=== PATIENT | male | born 1995 | race African-American/Black ===

== ENCOUNTER 2017-08-24 09:08 | Emergency (ER) | payer OTHER ==
[~2017-08-24] VITALS: Ht 167.6 cm; Wt 74.8 kg
[~2017-08-24 09:08] MED LIST: AUGMENTIN 875875 MG PO; HYDROCODONE-APA1 TA1 PO; IBUPROFEN 400400 M2 PO; IBUPROFEN 800800 MG PO; MAGOX 400400 MG PO; MUCINEX SINUS-1 EACH PO; NOHOMEMEDICATIONS; NORCO 5-325 TA1 EACH PO; ZYRTEC10 M4 PO
[2017-08-24 10:41] LABS: INFLUENZA A ANTIGEN None Detected (None Detect); INFLUENZA B ANTIGEN None Detected (None Detect)
[2017-08-24] MEDS ORDERED: atrovent NASAL (10:49)
[2017-08-24] MEDS ORDERED: IBUPROFEN 800800 MG PO (10:49)
[2017-08-24] MEDS ORDERED: AMOXICILLIN 50500 M1 PO (10:49)
[2017-08-24 10:59] VITALS: BP 135/80
== END 2017-08-24 11:00 | disposition home or self-care (01) ==
LOC: M.ERS 09:08
PROVIDERS: Personal Emergency Response Attendant
DX: B34.9 Viral infection, unspecified (principal)

== ENCOUNTER 2018-02-08 19:09 | Emergency (ER) | payer OTHER ==
[~2018-02-08] VITALS: Ht 170.2 cm; Wt 72.6 kg
[~2018-02-08 19:09] MED LIST changes: +AMOXICILLIN 50500 M1 PO; +atrovent NASAL
[2018-02-08 19:16] VITALS: BP 125/79
== END 2018-02-08 20:15 | disposition left against medical advice (07) ==
LOC: M.ERS 19:09
DX: Z53.21 Procedure and treatment not carried out due to patient leaving prior to being seen by health care provider (principal)